=== PATIENT | male | born 1965 | race Caucasian/White ===

== ENCOUNTER 2017-12-09 19:56 | Emergency (ER) | payer SELFPAY ==
[2017-12-10] MEDS ORDERED: NORCO 10/325 PO ONE (01:00)
[2017-12-10] MEDS ORDERED: BOOSTRIX IM ONE (01:00)
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
[2017-12-10 05:18] VITALS: BP 120/80
== END 2017-12-10 02:05 | disposition home or self-care (01) ==
LOC: ED 19:56
DX: T14.8XXA Other injury of unspecified body region, initial encounter (principal); V29.9XXA Motorcycle rider (driver) (passenger) injured in unspecified traffic accident, initial encounter; Y93.89 Activity, other specified; Y99.8 Other external cause status; Y92.410 Unspecified street and highway as the place of occurrence of the external cause; Z88.2 Allergy status to sulfonamides; Z88.6 Allergy status to analgesic agent
CPT/HCPCS: 90471; 90715; 99283